=== PATIENT | male | born 1980 | race Caucasian/White ===

== ENCOUNTER 2020-12-04 11:53 | Emergency (ER) | payer OTHER ==
[~2020-12-04] VITALS: Ht 182.9 cm; Wt 77.1 kg
[2020-12-04 12:03] VITALS: BP 125/81
[2020-12-04] MEDS ORDERED: CENTANY30 GM TOP (12:09)
[2020-12-04] MEDS ORDERED: BACTRIM DS TAB1 EACH PO (12:09)
== END 2020-12-04 12:52 | disposition home or self-care (01) ==
LOC: M.ERS 11:53
DX: L53.9 Erythematous condition, unspecified (principal)

== ENCOUNTER 2021-06-01 12:43 | Emergency (ER) | payer OTHER ==
[~2021-06-01] VITALS: Ht 182.9 cm; Wt 83.5 kg
[~2021-06-01 12:43] MED LIST: BACTRIM DS TAB1 EACH PO; CENTANY30 GM TOP
[2021-06-01 12:56] VITALS: BP 137/81
[2021-06-01] MEDS ORDERED: HYDROCODON-ACE1 EAC7 PO (14:15)
[2021-06-01] MEDS ORDERED: PREDNISONE 20 M20 M1 PO (14:15)
[2021-06-01] MEDS ORDERED: FLEXERIL PO (14:15)
== END 2021-06-01 14:21 | disposition home or self-care (01) ==
LOC: M.ERS 12:43
DX: M54.32 Sciatica, left side (principal); F17.210 Nicotine dependence, cigarettes, uncomplicated